=== PATIENT | male | born 1970 | race Caucasian/White ===

== ENCOUNTER 2020-02-09 22:38 | Emergency (ER) | payer OTHER ==
[2020-02-09 23:50] VITALS: BP 118/80; PULSE 67; TEMP 98.4; BMI 31.1
--- NOTE | 2020-02-10 01:04 | PDOC ---
Attending Attestation - Resident Resident Name: Arun Kim - ED Attending Attestation I have performed the following: I have examined & evaluated the patient, The case was reviewed & discussed with the resident, I agree w/resident's findings & plan - HPI HPI: 02/10/20 01:23 see resident hpi - Physicial Exam PE: 02/10/20 01:23 see resident exam - Medical Decision Making 02/10/20 01:23 49-year-old male initially here with complaints of constipation now stating that he has had intermittent scratchy throat and was concerned for covert infection due to a daughter who has asthma Patient is asymptomatic at this time EKG shows a sinus rhythm at 64 bpm with no acute ST elevations There is no old available for comparison Patient offered full evaluation including CT scan and labs due to intermittent symptoms which he is refusing at this time stating he would prefer to follow-up with his primary care doctor He is alert and oriented x4, he has a nontender abdomen on exam There is no criteria to hold patient against as well at this time He has verbalized understanding of instructions to return if worse Discharge - Discharge Information Problems reviewed: Yes Clinical Impression/Diagnosis: Constipation Condition: Stable Disposition: HOME - Follow up/Referral Referrals: Sue Saucedo MD [Primary Care Provider] - - Patient Discharge Instructions Patient Printed Discharge Instructions: DI for Constipation Additional Instructions: Your exam was reassuring. 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 Take miralax as directed on the bottle to help relieve the constipation. Return to the Emergency Department if you experience new or worsening symptoms, including but not limited to: - worsening pain - no significant bowel movement despite laxatives in the next 48 hours - chest pain - shortness of breath - anything that concerns you - Post Discharge Activity
--- NOTE | 2020-02-10 01:15 | PDOC ---
History of Present Illness - General Chief Complaint: Constipation Stated Complaint: CONSTIPATION Time Seen by Provider: 02/10/20 00:48 History Source: Patient Exam Limitations: No Limitations - History of Present Illness Initial Comments: 02/10/20 01:44 49M PMH HTN, HLD, DM, GERD presenting with 3-4 days of constipation w/ mild RLQ pain and RUQ discomfort / gas that completely resolves w/ burping. also c/o sore throat, states he has GERD. was initially concerned for covid but no sick contacts, no f/c, n/v. Passed small hard stool today. h/o appendectomy and occasional bouts of constipation since that surgery. Has established GI f/u. Past History - Medical History COPD: No Diabetes: Yes HTN: Yes - Psycho-Social/Smoking History Smoking History: Never smoked - Substance Abuse Hx (Audit-C & DAST Scrn) How often the patient has a drink containing alcohol: Never Score: In Men: 4 or > Positive; In Women: 3 or > Positive: 0 Screen Result (Pos requires Nsg. Audit-10AR): Negative Review of Systems - Review of Systems Comments:: 02/10/20 16:57 CONSTITUTIONAL: Denies F / C HEENT: +sore throat. Denies headache, lightheadedness RESP: Denies SOB, cough, orthopnea, DIAZ CARD: Denies chest pain, palpitations GI: +constipation, GERD. Denies N / V / D, bloody stool, inability to tolerate PO : Denies dysuria NEURO: Denies numbness, tingling, weakness MSK: Denies back pain SKIN: Denies rashes *Physical Exam - Vital Signs Last Vital Signs Temp Pulse Resp BP Pulse Ox 98.4 F 67 20 118/80 96 02/09/20 23:28 02/09/20 23:28 02/09/20 23:28 02/09/20 23:28 02/09/20 23:28 - Physical Exam 02/10/20 16:57 GEN: Well appearing, NAD, comfortable. AAOx3. HEENT: NC/AT, EOMI, PERRL. No facial asymmetry. Normal voice. Supple neck w/ FROM. CV: S1/S2, RRR, no m/r/g LUNG: CTAB, no wheezes, crackles, rales, rhonchi. GI: Soft, ndnt, +BS, no guarding, no rebound. No masses. RECTAL: No hemorrhoids, masses, lesions on inspection. No active bleeding or o ozing from anus. Normal sphincter tone. No masses or nodules of the rectal vault palpated. No fecal impaction. No blood on glove. MSK: No obvious deformities of all extremities. SKIN: Warm, dry, no rashes appreciated. PSYCH: Normal mood and affect. NEURO: Moving all extremities well. ambulates w/ normal gait Medical Decision Making - Medical Decision Making 02/10/20 16:57 49M primarily concerned regarding sore throat likely 2/2 GERD. He has had no sick contacts, f/c, cough, runny nose, sob. Informed patient there is no rapid covid test. Planned with patient to have him follow up with his PCP, of which he can arrange a rapid appointment with. Suggested miralax and GI f/u for constipation. EKG 01:18 HR 64, intervals and axis wnl, NSR, no DAVID/D, isolated TWI III pt reassured and dc'd home. questions and concerns were addressed. Discharge - Discharge Information Problems reviewed: Yes Clinical Impression/Diagnosis: Constipation, Sore throat Condition: Stable Disposition: HOME - Admission No - Follow up/Referral Referrals: Sue Saucedo MD [Primary Care Provider] - - Patient Discharge Instructions Patient Printed Discharge Instructions: DI for Constipation Additional Instructions: Your exam was reassuring. 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 Take miralax as directed on the bottle to help relieve the constipation. Return to the Emergency Department if you experience new or worsening symptoms, including but not limited to: - worsening pain - no significant bowel movement despite laxatives in the next 48 hours - chest pain - shortness of breath - anything that concerns you - Post Discharge Activity
--- NOTE | 2020-02-10 09:14 | EKG ---
Test Reason : Blood Pressure : / mmHG Vent. Rate : 064 BPM Atrial Rate : 064 BPM P-R Int : 174 ms QRS Dur : 096 ms QT Int : 406 ms P-R-T Axes : 048 -15 016 degrees QTc Int : 418 ms NORMAL SINUS RHYTHM CANNOT RULE OUT ANTERIOR INFARCT , AGE UNDETERMINED ABNORMAL ECG NO PREVIOUS ECGS AVAILABLE Confirmed by JANETH ABRAHAM MD ([id number]) on 02/10/2020 9:14:12 AM Referred By: Confirmed By:JANETH ABRAHAM MD
== END 2020-02-10 01:50 | disposition home or self-care (01) ==
LOC: JER 22:38
DX: K59.00 Constipation, unspecified (principal)
CPT/HCPCS: 93005; 93010; 99282-25